=== PATIENT | female | born 1950 | race Caucasian/White ===

== ENCOUNTER 2016-09-12 02:04 | Inpatient (IN) | payer OTHER ==
[~2016-09-12] VITALS: Ht 175.3 cm; Wt 64.5 kg
[~2016-09-12 02:04] MED LIST: BENA1POW PO; LITH300C3 OR; LORA1TAB12 OR; LOVA40TA72 OR; PROMCRY PO; VENL150C OR
[2016-09-12 06:04] LABS: Basophils # (auto) 0.2 uL; Basophils % (auto) 0.8 % (0.0-2.0); Eosinophils # (auto) 0 uL; Hematocrit 43.4 % (36.0-46.0); Hemoglobin 14.2 g/dL (12.2-16.2); Lymphocytes # (auto) 1.2 uL; Lymphocytes % (auto) 6.5 % (10.0-50.0); Mean Corpuscular Hemoglobin 30.1 pg (28.0-32.0); Mean Corpuscular Hgb Conc. 32.7 g/dL (32.0-36.0); Mean Platelet Volume 8.7 fL (7.4-10.4); Monocytes # (auto) 0.9 uL; Monocytes % (auto) 4.9 % (0.0-12.0); Neutrophils # (auto) 16.2 uL; Neutrophils % (auto) 87.8 % (37.0-80.0); Platelet Count (auto) 306 10^3/uL (140-450); Red Cell Distribution Width 14.8 % (11.6-16.0); White Blood Cell 18.4 10^3/uL (4.4-10.8)
[2016-09-12 06:23] LABS: BUN/Creatinine Ratio 12.6; Calcium 10.7 mg/dL (8.5-10.1)
[2016-09-12 06:26] LABS: Bilirubin, Total 0.9 mg/dL (0.2-1.0); Total Protein 7.9 g/dL (6.4-8.2)
[2016-09-12 06:29] LABS: Potassium 2.8 mmol/L (3.5-5.1)
[2016-09-12] MEDS ORDERED: SOD CHL 0.9%/ KCL 20MEQ 1,000 ML IV ONE (07:00)
[2016-09-12] MEDS ORDERED: LORazepam 0.5 MG TAB PO ONE (07:00)
[2016-09-12] MEDS ORDERED: ASPirin 325 MG TAB PO ONE (10:00)
[2016-09-12] MEDS ORDERED: ENOXAPARIN SOD 100 MG/1 ML SYRINGE SC ONE (10:15)
[2016-09-12] MEDS ORDERED: NITROGLYCERIN 0.4 MG SL TAB SL PRN (12:00)
[2016-09-12] MEDS ORDERED: SODIUM CHLORIDE 0.9% 1,000 ML IV ONE (12:00)
[2016-09-12] MEDS ORDERED: MORPHINE SULF INJ 2 MG/ML SYRINGE 1ML IV PRN (12:00)
[2016-09-12] MEDS ORDERED: HYDROcodone-ACET 5/325MG TAB PO PRN (12:30)
[2016-09-12] MEDS ORDERED: ALPRAZolam 0.5 MG TAB PO PRN (12:30)
[2016-09-12] MEDS ORDERED: cefTRIAXone 1GM/50ML D5W 50 ML IV ONE (12:45)
[2016-09-12 13:00] VITALS: BP 149/66
[2016-09-12] MEDS ORDERED: LORazepam 0.5 MG TAB PO PRN (13:15)
[2016-09-12 17:00] VITALS: BP 123/63
[2016-09-12] MEDS: ENOXAPARIN SOD 80 MG/0.8ML SYRINGE SC SCH (21:36)
[2016-09-12] MEDS ORDERED: ATORVASTATIN 20 MG TAB PO SCH (22:00)
[2016-09-12 22:18] VITALS: BP 149/84
[2016-09-13] MEDS ORDERED: POTASSIUM CHL 20 Meq TABLET PO ONE (00:15)
[2016-09-13 05:20] VITALS: BP 136/71
[2016-09-13] MEDS ORDERED: VENLAFAXINE HCL 37.5mg XR cap PO SCH (07:00)
[2016-09-13 07:55] LABS: Basophils # (auto) 0.1 uL; Basophils % (auto) 0.5 % (0.0-2.0); Eosinophils # (auto) 0 uL; Eosinophils % (auto) 0.2 % (0.0-7.0); Hematocrit 39.6 % (36.0-46.0); Hemoglobin 12.8 g/dL (12.2-16.2); Lymphocytes # (auto) 1.4 uL; Lymphocytes % (auto) 12.1 % (10.0-50.0); Mean Corpuscular Hemoglobin 30.2 pg (28.0-32.0); Mean Corpuscular Hgb Conc. 32.4 g/dL (32.0-36.0); Mean Corpuscular Volume 93.2 fL (80.0-100.0); Mean Platelet Volume 9.1 fL (7.4-10.4); Monocytes # (auto) 0.6 uL; Neutrophils # (auto) 9.4 uL; Neutrophils % (auto) 82.2 % (37.0-80.0); Platelet Count (auto) 265 10^3/uL (140-450); Red Cell Distribution Width 15.1 % (11.6-16.0); White Blood Cell 11.4 10^3/uL (4.4-10.8)
[2016-09-13] MEDS ORDERED: LAMO100T44 PO (08:16)
[2016-09-13 08:20] LABS: Albumin 3.6 g/dL (3.4-5.0); BUN/Creatinine Ratio 16.3; Bilirubin, Total 0.6 mg/dL (0.2-1.0); Calcium 10.3 mg/dL (8.5-10.1); Potassium 3.9 mmol/L (3.5-5.1); Total Protein 6.4 g/dL (6.4-8.2)
[2016-09-13 08:57] VITALS: BP 155/78
[2016-09-13] MEDS ORDERED: cefTRIAXone 1GM/50ML D5W 50 ML IV SCH (09:00)
[2016-09-13] MEDS: ENOXAPARIN SOD 80 MG/0.8ML SYRINGE SC SCH (10:00)
[2016-09-13] MEDS ORDERED: BENAZEPRIL HCL 10 MG TAB PO SCH (10:00)
[2016-09-13 11:06] VITALS: BP 131/66
== END 2016-09-13 14:10 | disposition home or self-care (01) | DRG 872 ==
LOC: ER 02:04 → TELE 02:05 → TELE-EAST 12:35
PROVIDERS: ADMIT Internal Medicine; ATTEND Internal Medicine
DX: A41.9 Sepsis, unspecified organism (principal); N18.4 Chronic kidney disease, stage 4 (severe); F31.9 Bipolar disorder, unspecified; F41.9 Anxiety disorder, unspecified; F43.10 Post-traumatic stress disorder, unspecified; E86.0 Dehydration; E87.6 Hypokalemia; E87.8 Other disorders of electrolyte and fluid balance, not elsewhere classified; I12.9 Hypertensive chronic kidney disease with stage 1 through stage 4 chronic kidney disease, or unspecified chronic kidney disease; E78.5 Hyperlipidemia, unspecified; Z23 Encounter for immunization; K57.30 Diverticulosis of large intestine without perforation or abscess without bleeding
CPT/HCPCS: 36415; 71010; 71101; 74176; 80053; 83690; 84478; 84484; 85025; 85049; 93005; 93306; 96360; 96361; 96372; J0696

== ENCOUNTER 2016-11-09 22:21 | Emergency (ER) | payer OTHER ==
[~2016-11-09] VITALS: Ht 175.3 cm; Wt 67.1 kg
[~2016-11-09 22:21] MED LIST changes: +LAMO100T44 PO; -LITH300C3 OR; -PROMCRY PO
[2016-11-09 23:16] LABS: Basophils # (auto) 0 uL; Basophils % (auto) 0.3 % (0.0-2.0); Eosinophils # (auto) 0 uL; Hematocrit 41.7 % (36.0-46.0); Hemoglobin 13.8 g/dL (12.2-16.2); Lymphocytes # (auto) 1.2 uL; Mean Corpuscular Hemoglobin 30.3 pg (28.0-32.0); Mean Corpuscular Volume 91.8 fL (80.0-100.0); Mean Platelet Volume 8.8 fL (7.4-10.4); Monocytes # (auto) 0.8 uL; Monocytes % (auto) 5.7 % (0.0-12.0); Neutrophils # (auto) 12.6 uL; Platelet Count (auto) 270 10^3/uL (140-450); Red Cell Distribution Width 14.8 % (11.6-16.0); White Blood Cell 14.7 10^3/uL (4.4-10.8)
[2016-11-09 23:34] LABS: INR 1.04 (0.9-1.15); Partial Thromboplastin Time 25.4 sec (22.64-33.71); Prothrombin Time 10.7 sec (9.37-12.3)
[2016-11-09 23:42] LABS: BUN/Creatinine Ratio 15.5; Calcium 10.7 mg/dL (8.5-10.1)
[2016-11-09 23:47] LABS: Bilirubin, Total 0.8 mg/dL (0.2-1.0); Total Protein 7.6 g/dL (6.4-8.2)
[2016-11-10 00:18] LABS: Potassium 2.8 mmol/L (3.5-5.1)
[2016-11-10 00:30] LABS: Urine Bilirubin Negative (Negative); Urine Blood Negative /uL (Negative); Urine Color Yellow (Yellow); Urine Glucose Normal (Normal); Urine Ketone Negative (Negative); Urine Nitrite Negative (Negative); Urine RBC 1 /hpf (0 - 4); Urine Squamous Epithelial Cell FEW /hpf (<5); Urine Urobilinogen Normal (Negative)
[2016-11-10] MEDS ORDERED: ONDANSETRON HCL 4 MG/2 ML VIAL IV ONE (04:15)
[2016-11-10] MEDS ORDERED: SODIUM CHLORIDE 0.9% 1,000 ML IV ONE ×3 (04:15→07:30)
[2016-11-10] MEDS ORDERED: POTASSIUM CHLORIDE 40 MEQ, LIDOCAINE 1% (LOCAL ANESTH.) 4 ML in SODIUM CHL 0.9% 250 ML IV ONE (04:30)
[2016-11-10] MEDS ORDERED: POTASSIUM CHL 20MEQ/100ML 100 ML IV ONE (04:45)
[2016-11-10] MEDS: POTASSIUM CHL 20MEQ/100ML 100 ML IV SCH ×2 (04:45→07:11)
[2016-11-10] MEDS ORDERED: POTASSIUM CHL 20MEQ/100ML 200 ML IV ONE (05:00)
[2016-11-10] MEDS ORDERED: SODIUM CHLORIDE 0.9% 1,000 ML IV SCH (06:05)
[2016-11-10] MEDS ORDERED: LORazepam 0.5 MG TAB PO PRN (06:15)
[2016-11-10] MEDS ORDERED: MORPHINE SULF INJ 2 MG/ML SYRINGE 1ML IV PRN ×4 (06:15→08:45)
[2016-11-10] MEDS ORDERED: HYDROcodone-ACET 5/325MG TAB PO PRN (06:15)
[2016-11-10] MEDS ORDERED: ACETAMINOPHEN 325 MG TAB PO PRN (06:15)
[2016-11-10] MEDS ORDERED: NITROGLYCERIN 0.4 MG SL TAB SL PRN ×2 (06:15→07:30)
[2016-11-10] MEDS ORDERED: ONDANSETRON HCL 4 MG/2 ML VIAL IV PRN ×3 (06:15→08:45)
[2016-11-10] MEDS ORDERED: LEVOFLOXACIN 500MG 100 ML IV ONE (07:30)
[2016-11-10] MEDS ORDERED: [UNRECOGNIZED DRUG - CODE] PO (07:33)
[2016-11-10] MEDS ORDERED: LOR05T PO (07:33)
[2016-11-10] MEDS ORDERED: LAMO25TA66 PO (07:33)
[2016-11-10 07:52] LABS: Potassium 3.6 mmol/L (3.5-5.1)
[2016-11-10 08:00] LABS: BUN/Creatinine Ratio 17.3; Calcium 9.6 mg/dL (8.5-10.1)
[2016-11-10] MEDS ORDERED: hydrALAZINE HCL 20 MG/ML VL IV ONE ×2 (08:45)
[2016-11-10] MEDS ORDERED: METOCLOPRAMIDE HCL 5MG/ml INJ 2ml VIAL IV ONE (09:45)
[2016-11-10] MEDS ORDERED: ENOXAPARIN SOD 30 MG/0.3 ML SYRINGE SC SCH (10:00)
[2016-11-10] MEDS ORDERED: PANTOPRAZOLE SODIUM 40 MG/10 ML VIAL IV SCH (10:00)
[2016-11-10] MEDS ORDERED: lamoTRIgine 25 MG TAB PO SCH (10:00)
[2016-11-10] MEDS ORDERED: BENAZEPRIL HCL 10 MG TAB PO SCH (10:00)
[2016-11-10 16:50] VITALS: BP 124/59
[2016-11-10] MEDS ORDERED: PRAVASTATIN SODIUM 20 MG TAB PO SCH (22:00)
[2016-11-10] MEDS ORDERED: PATIENTS OWN MEDICATION (lovastatin 40 MG) PO SCH ×2 (22:00)
== END 2016-11-10 09:50 | disposition home or self-care (01) ==
LOC: ER 22:34 → UNDOADMIN 22:35 → TELE 22:35
DX: N17.9 Acute kidney failure, unspecified (principal); R79.89 Other specified abnormal findings of blood chemistry; E87.6 Hypokalemia; I10 Essential (primary) hypertension
CPT/HCPCS: 36415; 70450; 74176; 80048; 80053; 81001; 82150; 83690; 84484; 85025; 85610; 85730; 96361; 96365; 96375; 96376; 99285; G0434; J0360; J1956; J2405; J2765; J3480; J7030; 93005; J2001

== ENCOUNTER 2017-01-28 18:38 | Emergency (ER) | payer OTHER ==
[~2017-01-28] VITALS: Ht 188 cm; Wt 68.0 kg
[~2017-01-28 18:38] MED LIST changes: +LAMO25TA66 PO; +LOR05T PO; +[UNRECOGNIZED DRUG - CODE] PO
[2017-01-28 20:36] LABS: Basophils # (auto) 0.1 uL; Basophils % (auto) 0.5 % (0.0-2.0); Eosinophils # (auto) 0 uL; Hematocrit 44.5 % (36.0-46.0); Hemoglobin 14.6 g/dL (12.2-16.2); Lymphocytes # (auto) 0.7 uL; Lymphocytes % (auto) 5.2 % (10.0-50.0); Mean Corpuscular Hgb Conc. 32.9 g/dL (32.0-36.0); Mean Corpuscular Volume 91.3 fL (80.0-100.0); Mean Platelet Volume 9.2 fL (7.4-10.4); Monocytes # (auto) 0.3 uL; Monocytes % (auto) 2.1 % (0.0-12.0); Neutrophils # (auto) 12.4 uL; Neutrophils % (auto) 92.2 % (37.0-80.0); Platelet Count (auto) 340 10^3/uL (140-450); Red Cell Distribution Width 15.1 % (11.6-16.0); White Blood Cell 13.5 10^3/uL (4.4-10.8)
[2017-01-28 20:57] LABS: Bilirubin, Total 0.6 mg/dL (0.2-1.0); Calcium 11.1 mg/dL (8.5-10.1); Magnesium 2.6 mg/dL (1.6-2.6); Potassium 4.4 mmol/L (3.5-5.1); Total Protein 7.9 g/dL (6.4-8.2)
[2017-01-29] MEDS ORDERED: LORazepam 2MG/ML-1ML VIAL ONE (02:06)
[2017-01-29] MEDS ORDERED: diphenhdrAMINE HCL 50 MG/1 ML VL ONE (02:12)
[2017-01-29] MEDS ORDERED: SODIUM CHLORIDE 0.9% 1,000 ML IV ONE (02:15)
[2017-01-29] MEDS ORDERED: LORazepam 2MG/ML-1ML VIAL IV ONE ×3 (02:15→02:30)
[2017-01-29] MEDS ORDERED: diphenhdrAMINE HCL 50 MG/1 ML VL IV ONE (02:30)
[2017-01-29 02:51] LABS: INR 1.01 (0.9-1.15)
[2017-01-29 02:59] LABS: Acetaminophen < 2.0 ug/mL (10-30); Salicylate 3.3 mg/dL (2.8-20.0)
[2017-01-29 09:05] LABS: Urine Bilirubin Negative (Negative); Urine Blood 1+ /uL (Negative); Urine Color Yellow (Yellow); Urine Glucose Normal (Normal); Urine Ketone Negative (Negative); Urine Nitrite Negative (Negative); Urine RBC <1 /hpf (0 - 4); Urine Squamous Epithelial Cell FEW /hpf (<5); Urine Urobilinogen Normal (Negative)
[2017-01-29 10:00] VITALS: BP 143/74
[2017-01-29] MEDS ORDERED: ASPirin 325 MG TAB PO ONE (10:45)
== END 2017-01-29 11:11 | disposition home or self-care (01) ==
LOC: EDBD 18:38 → ER 18:43
DX: G92 Toxic encephalopathy (principal); R56.9 Unspecified convulsions; R79.89 Other specified abnormal findings of blood chemistry; I10 Essential (primary) hypertension; Z79.899 Other long term (current) drug therapy; Z91.011 Allergy to milk products
CPT/HCPCS: 36415; 70450; 71010; 74176; 80053; 80307; 80329; 81001; 83735; 84484; 85025; 85610; 93005; 94761; 96361; 96374; 96375; 99285; J1200; J2060

== ENCOUNTER 2017-06-19 13:11 | Inpatient (IN) | payer OTHER ==
[~2017-06-19] VITALS: Ht 167.6 cm; Wt 64.2 kg
[~2017-06-19 13:11] MED LIST changes: -LOR05T PO; +LORA-654 PO
[2017-06-19] MEDS ORDERED: LORazepam 2MG/ML-1ML VIAL ONE (13:23)
[2017-06-19] MEDS ORDERED: LORazepam 2MG/ML-1ML VIAL IM ONE ×2 (13:30→14:45)
[2017-06-19 14:04] LABS: Basophils # (auto) 0.1 uL; Basophils % (auto) 0.3 % (0.0-2.0); Eosinophils # (auto) 0 uL; Hemoglobin 14.9 g/dL (12.2-16.2); Lymphocytes # (auto) 1.4 uL; Lymphocytes % (auto) 6.6 % (10.0-50.0); Mean Corpuscular Hemoglobin 30.6 pg (28.0-32.0); Mean Corpuscular Hgb Conc. 33.2 g/dL (32.0-36.0); Mean Corpuscular Volume 92.2 fL (80.0-100.0); Mean Platelet Volume 8.2 fL (6.9-10.8); Monocytes # (auto) 1.8 uL; Monocytes % (auto) 8.6 % (0.0-12.0); Neutrophils % (auto) 84.5 % (37.0-80.0); Nucleated Red Blood Cells % 0.1 %; Platelet Count (auto) 299 10^3/uL (140-450); Red Cell Distribution Width 14.3 % (11.8-14.3); White Blood Cell 21.4 10^3/uL (4.4-10.8)
[2017-06-19] MEDS ORDERED: SODIUM CHLORIDE 0.9% 1,000 ML IVB ONE (14:22)
[2017-06-19 14:25] LABS: Albumin 5.1 g/dL (3.4-5.0); Alkaline Phosphatase 113 U/L (45-117); Anion Gap 19 (5-15); Aspartate Aminotransferase 84 U/L (15-37); BUN/Creatinine Ratio 16.2; Bilirubin, Total 1.8 mg/dL (0.2-1.0); Blood Urea Nitrogen 39 mg/dL (7-18); Calcium 11.8 mg/dL (8.5-10.1); Carbon Dioxide 23 mmol/L (21-32); Chloride 93 mmol/L (98-107); GFR African American 26 mL/min; GFR Non-African American 21 mL/min; Glucose 109 mg/dL (74-106); Potassium 3.1 mmol/L (3.5-5.1); Sodium 135 mmol/L (136-145); Total Protein 9.3 g/dL (6.4-8.2)
[2017-06-19 14:45] LABS: Lactic Acid w/Reflex 5.8 mmol/L (0.4-2.0)
[2017-06-19] MEDS ORDERED: diphenhdrAMINE HCL 50 MG/1 ML VL IM ONE (14:45)
[2017-06-19] MEDS ORDERED: HALOPERIDOL LACTATE 5 MG/ML INJ VIAL IM ONE (14:45)
[2017-06-19 14:46] LABS: REFLEX LACTIC ACID YES OR NO YES
[2017-06-19 14:47] LABS: Magnesium 2.9 mg/dL (1.6-2.6)
[2017-06-19] MEDS ORDERED: SODIUM CHLORIDE 0.9% 1,000 ML IV ONE ×2 (15:30)
[2017-06-19] MEDS ORDERED: cefTRIAXone 1GM/50ML D5W 50 ML IV ONE (15:30)
[2017-06-19 16:03] LABS: INR 0.93 (0.9-1.15); Partial Thromboplastin Time 24.5 sec (22.64-33.71); Prothrombin Time 10.1 sec (9.37-12.3)
[2017-06-19 17:22] LABS: Urine Bilirubin Negative (Negative); Urine Blood 2+ /uL (Negative); Urine Color Yellow (Yellow); Urine Glucose Normal (Normal); Urine Ketone Negative (Negative); Urine Nitrite Negative (Negative); Urine RBC 1 /hpf (0 - 4); Urine Squamous Epithelial Cell FEW /hpf (<5); Urine Urobilinogen Normal (Negative); Urine pH 6.5 (5.0-8.0)
[2017-06-19] MEDS: POTASSIUM CHL 10MEQ/100ML 100 ML IV SCH ×2 (17:48→20:00)
[2017-06-19] MEDS ORDERED: POTASSIUM CHL 10MEQ/100ML 100 ML IV ONE (19:53)
[2017-06-19] MEDS ORDERED: MORPHINE SULFATE 10 MG/ML INJ 1ML SDV IV PRN (21:30)
[2017-06-19] MEDS ORDERED: ACETAMINOPHEN 325 MG TAB PO PRN (21:30)
[2017-06-19] MEDS ORDERED: VANCOMYCIN PER PHARMACY 0 MG IV SCH (21:30)
[2017-06-19] MEDS ORDERED: ONDANSETRON HCL 4 MG/2 ML VIAL IV PRN (21:30)
[2017-06-19] MEDS ORDERED: ENOXAPARIN SOD 40 MG/0.4 ML SYRINGE SC ONE (21:30)
[2017-06-19] MEDS ORDERED: NITROGLYCERIN 0.4 MG SL TAB SL PRN (21:30)
[2017-06-19] MEDS: SODIUM CHLORIDE 0.9% 1,000 ML IV SCH (21:30)
[2017-06-19] MEDS ORDERED: VANCOMYCIN 1GM/250ML D5W 250 ML IV ONE (21:45)
[2017-06-20] MEDS ORDERED: ENOXAPARIN SOD 100 MG/1 ML SYRINGE SC ONE (01:00)
[2017-06-20] MEDS: HYDROcodone-ACET 5/325MG TAB PO PRN ×2 (01:58→20:29)
[2017-06-20 04:46] LABS: Basophils # (auto) 0.1 uL; Basophils % (auto) 0.4 % (0.0-2.0); Eosinophils # (auto) 0 uL; Eosinophils % (auto) 0.1 % (0.0-7.0); Hematocrit 39.6 % (36.0-46.0); Lymphocytes # (auto) 1.7 uL; Lymphocytes % (auto) 13.1 % (10.0-50.0); Mean Corpuscular Hemoglobin 30.5 pg (28.0-32.0); Mean Corpuscular Hgb Conc. 32.7 g/dL (32.0-36.0); Mean Corpuscular Volume 93.1 fL (80.0-100.0); Mean Platelet Volume 8.5 fL (6.9-10.8); Monocytes # (auto) 1.4 uL; Monocytes % (auto) 10.5 % (0.0-12.0); Neutrophils % (auto) 75.9 % (37.0-80.0); Platelet Count (auto) 234 10^3/uL (140-450); Red Cell Distribution Width 13.9 % (11.8-14.3); White Blood Cell 13.2 10^3/uL (4.4-10.8)
[2017-06-20 05:14] LABS: Albumin 3.6 g/dL (3.4-5.0); BUN/Creatinine Ratio 19.8; Bilirubin, Total 1.3 mg/dL (0.2-1.0); Calcium 9.8 mg/dL (8.5-10.1); Potassium 3.3 mmol/L (3.5-5.1); Total Protein 6.4 g/dL (6.4-8.2)
[2017-06-20] MEDS: PIPERACILLIN-TAZOB 2.25GM 50 ML IV SCH ×4 (06:14→17:52)
[2017-06-20 10:00] VITALS: BP 118/59
[2017-06-20] MEDS ORDERED: ENOXAPARIN SOD 40 MG/0.4 ML SYRINGE SC SCH (10:00)
[2017-06-20] MEDS: BENAZEPRIL HCL 10 MG TAB PO SCH (10:07)
[2017-06-20] MEDS: SODIUM CHLORIDE 0.9% 1,000 ML IV SCH (10:08)
[2017-06-20] MEDS: ASPirin 81 mg TAB PO SCH (10:08)
[2017-06-20] MEDS: PANTOPRAZOLE 40 MG TAB PO SCH (10:08)
[2017-06-20 11:45] VITALS: BP 116/69
[2017-06-20 15:55] VITALS: BP 134/73
[2017-06-20 20:00] VITALS: BP 165/90
[2017-06-20] MEDS: LORazepam 0.5 MG TAB PO PRN (20:29)
[2017-06-20] MEDS: VANCOMYCIN 1GM/250ML D5W 250 ML IV SCH (22:24)
[2017-06-21] VITALS: BP 146/53
[2017-06-21] MEDS: SODIUM CHLORIDE 0.9% 1,000 ML IV SCH (00:05)
[2017-06-21] MEDS: PIPERACILLIN-TAZOB 2.25GM 50 ML IV SCH ×4 (00:57→18:02)
[2017-06-21 04:00] VITALS: BP 146/63
[2017-06-21 06:09] LABS: Albumin 3.5 g/dL (3.4-5.0); BUN/Creatinine Ratio 18.3; Bilirubin, Total 0.9 mg/dL (0.2-1.0); Calcium 9.8 mg/dL (8.5-10.1); Potassium 3.4 mmol/L (3.5-5.1); Total Protein 6.5 g/dL (6.4-8.2)
[2017-06-21] MEDS: LORazepam 0.5 MG TAB PO PRN ×2 (08:50→21:06)
[2017-06-21] MEDS: PANTOPRAZOLE 40 MG TAB PO SCH (08:50)
[2017-06-21] MEDS: BENAZEPRIL HCL 10 MG TAB PO SCH (08:51)
[2017-06-21] MEDS: ASPirin 81 mg TAB PO SCH (08:53)
[2017-06-21] MEDS ORDERED: DESMOPRESSIN ACET 4 MCG/1 ML AMPULE IV ONE (10:45)
[2017-06-21 11:55] VITALS: BP 161/95
[2017-06-21] MEDS: SOD CHL 0.45% WITH 20MEQ KCL 1,000 ML IV SCH (12:00)
[2017-06-21 16:00] VITALS: BP 145/74
[2017-06-21 20:00] VITALS: BP 146/81
[2017-06-21] MEDS: HYDROcodone-ACET 5/325MG TAB PO PRN (21:07)
[2017-06-21 22:00] VITALS: BP 128/77
[2017-06-21] MEDS: VANCOMYCIN 1GM/250ML D5W 250 ML IV SCH (22:35)
[2017-06-22] MEDS: SOD CHL 0.45% WITH 20MEQ KCL 1,000 ML IV SCH ×2 (00:35→13:55)
[2017-06-22 05:22] VITALS: BP 143/79
[2017-06-22] MEDS: PIPERACILLIN-TAZOB 2.25GM 50 ML IV SCH ×3 (05:30→12:00)
[2017-06-22 06:46] LABS: Basophils # (auto) 0.1 uL; Basophils % (auto) 0.6 % (0.0-2.0); Eosinophils # (auto) 0.2 uL; Eosinophils % (auto) 1.9 % (0.0-7.0); Hematocrit 38.6 % (36.0-46.0); Hemoglobin 12.9 g/dL (12.2-16.2); Lymphocytes # (auto) 1.5 uL; Lymphocytes % (auto) 14.7 % (10.0-50.0); Mean Corpuscular Hgb Conc. 33.3 g/dL (32.0-36.0); Mean Corpuscular Volume 93.1 fL (80.0-100.0); Mean Platelet Volume 8.5 fL (6.9-10.8); Monocytes # (auto) 0.8 uL; Monocytes % (auto) 7.4 % (0.0-12.0); Neutrophils # (auto) 7.9 uL; Neutrophils % (auto) 75.4 % (37.0-80.0); Platelet Count (auto) 219 10^3/uL (140-450); Red Cell Distribution Width 13.8 % (11.8-14.3); White Blood Cell 10.5 10^3/uL (4.4-10.8)
[2017-06-22 07:09] LABS: Albumin 3.4 g/dL (3.4-5.0); BUN/Creatinine Ratio 14.5; Bilirubin, Total 1.1 mg/dL (0.2-1.0); Calcium 9.8 mg/dL (8.5-10.1); Potassium 3.6 mmol/L (3.5-5.1); Total Protein 6.4 g/dL (6.4-8.2)
[2017-06-22 09:00] VITALS: BP 156/92
[2017-06-22] MEDS: BENAZEPRIL HCL 10 MG TAB PO SCH (10:28)
[2017-06-22] MEDS: PANTOPRAZOLE 40 MG TAB PO SCH (10:28)
[2017-06-22] MEDS: ASPirin 81 mg TAB PO SCH (10:28)
[2017-06-22] MEDS: HYDROcodone-ACET 5/325MG TAB PO PRN (10:29)
[2017-06-22] MEDS: LORazepam 0.5 MG TAB PO PRN (11:09)
[2017-06-22] MEDS ORDERED: TRIATAB3 PO (11:28)
[2017-06-22 11:49] VITALS: BP 156/92
[2017-06-22 13:00] VITALS: BP 152/105
== END 2017-06-22 14:00 | disposition home or self-care (01) | DRG 682 ==
LOC: ER 13:11 → EDUNIT# 13:11 → EDBD 13:11 → TELE 13:12 → DOU IN ICU 06-20 08:50 → TELE-WESTW 06-21 21:51
PROVIDERS: ADMIT Nurse Practitioner; ATTEND Internal Medicine
DX: N17.9 Acute kidney failure, unspecified (principal); G93.41 Metabolic encephalopathy; E87.0 Hyperosmolality and hypernatremia; N18.4 Chronic kidney disease, stage 4 (severe); N25.1 Nephrogenic diabetes insipidus; I12.9 Hypertensive chronic kidney disease with stage 1 through stage 4 chronic kidney disease, or unspecified chronic kidney disease; E78.5 Hyperlipidemia, unspecified; E87.6 Hypokalemia; F12.90 Cannabis use, unspecified, uncomplicated; F31.9 Bipolar disorder, unspecified; T43.595A Adverse effect of other antipsychotics and neuroleptics, initial encounter; F41.9 Anxiety disorder, unspecified; Z91.011 Allergy to milk products; Z79.899 Other long term (current) drug therapy; Y92.89 Other specified places as the place of occurrence of the external cause
CPT/HCPCS: 36415; 51702; 70450; 71010; 80053; 80178; 80202; 80307; 80320; 81001; 82550; 83605; 83735; 83930; 83935; 84484; 85025; 85610; 85730; 87040; 87081; 93005; 94761; 96361; 96365; 96366; 96367; 96372; A4565; J0696; J2543

== ENCOUNTER 2017-08-12 14:56 | Emergency (ER) | payer OTHER ==
[~2017-08-12] VITALS: Ht 182.9 cm; Wt 54.4 kg
[~2017-08-12 14:56] MED LIST changes: -LAMO100T44 PO; -LORA1TAB12 OR; -LOVA40TA72 OR; +ROSU5TAB5 PO; +[UNRECOGNIZED DRUG - CODE] PO; -[UNRECOGNIZED DRUG - CODE] PO
[2017-08-12] MEDS ORDERED: SODIUM CHLORIDE 0.9% 1,000 ML IV ONE ×2 (15:19)
[2017-08-12] MEDS ORDERED: MORPHINE SULFATE 4 MG/ML SYRG IV ONE (15:30)
[2017-08-12] MEDS ORDERED: ONDANSETRON HCL 4 MG/2 ML VIAL IV ONE ×2 (15:30→21:00)
[2017-08-12 16:01] LABS: Basophils # (auto) 0.1 uL; Basophils % (auto) 1.1 % (0.0-2.0); Eosinophils # (auto) 0 uL; Hematocrit 39.1 % (36.0-46.0); Hemoglobin 12.9 g/dL (12.2-16.2); Lymphocytes # (auto) 1.7 uL; Mean Corpuscular Hemoglobin 30.1 pg (28.0-32.0); Mean Corpuscular Hgb Conc. 33.1 g/dL (32.0-36.0); Mean Platelet Volume 7.7 fL (6.9-10.8); Monocytes % (auto) 7.2 % (0.0-12.0); Neutrophils # (auto) 11.1 uL; Neutrophils % (auto) 79.7 % (37.0-80.0); Platelet Count (auto) 346 10^3/uL (140-450); Red Cell Distribution Width 14.2 % (11.8-14.3); White Blood Cell 13.9 10^3/uL (4.4-10.8)
[2017-08-12 16:02] LABS: Albumin 3.7 g/dL (3.4-5.0); BUN/Creatinine Ratio 14.7; Bilirubin, Total 0.8 mg/dL (0.2-1.0); Calcium 10.3 mg/dL (8.5-10.1); Potassium 3.2 mmol/L (3.5-5.1); Total Protein 7.3 g/dL (6.4-8.2)
[2017-08-12] MEDS ORDERED: LORazepam 2MG/ML-1ML VIAL IV ONE (16:30)
[2017-08-12] MEDS ORDERED: PRO10T PO (18:30)
[2017-08-12 18:59] LABS: Urine Bilirubin Negative (Negative); Urine Blood TRACE /uL (Negative); Urine Color Yellow (Yellow); Urine Glucose Normal (Normal); Urine Ketone Negative (Negative); Urine Nitrite Negative (Negative); Urine RBC 1 /hpf (0 - 4); Urine Squamous Epithelial Cell FEW /hpf (<5); Urine Urobilinogen Normal (Negative)
[2017-08-12] MEDS ORDERED: ONDANSETRON HCL 4 MG/2 ML VIAL ONE (20:36)
[2017-08-13 00:12] VITALS: BP 129/80
== END 2017-08-13 00:23 | disposition short-term general hospital (02) ==
LOC: ER 14:56 → EDBD 14:56 → ER 08-13 00:23
DX: R79.89 Other specified abnormal findings of blood chemistry (principal); R10.13 Epigastric pain; R11.2 Nausea with vomiting, unspecified; I12.9 Hypertensive chronic kidney disease with stage 1 through stage 4 chronic kidney disease, or unspecified chronic kidney disease; N18.9 Chronic kidney disease, unspecified; F17.210 Nicotine dependence, cigarettes, uncomplicated; E78.5 Hyperlipidemia, unspecified; Z79.899 Other long term (current) drug therapy; Z91.011 Allergy to milk products
CPT/HCPCS: 36415; 71010; 74176; 80053; 81001; 82150; 83690; 84484; 85025; 93005; 96361; 96374; 96375; 96376; 99285; J2060; J2270; J2405; J7040

== ENCOUNTER 2017-08-24 19:52 | Emergency (ER) | payer OTHER ==
[~2017-08-24] VITALS: Ht 177.8 cm; Wt 72.6 kg
[~2017-08-24 19:52] MED LIST changes: +PRO10T PO
[2017-08-24] MEDS ORDERED: PROMETHAZINE HCL 25 MG/ML 1ML ONE (20:36)
[2017-08-24] MEDS ORDERED: HYDROmorphone HCL 2 MG/ML VL ONE (20:36)
[2017-08-24] MEDS ORDERED: LORazepam 2MG/ML-1ML VIAL ONE (20:36)
[2017-08-24] MEDS ORDERED: PROMETHAZINE HCL 25 MG/ML 1ML IV ONE (20:45)
[2017-08-24] MEDS ORDERED: LORazepam 2MG/ML-1ML VIAL IV ONE (20:45)
[2017-08-24] MEDS ORDERED: HYDROmorphone HCL 2 MG/ML VL IV ONE (20:45)
[2017-08-24 20:53] LABS: Basophils # (auto) 0 uL; Eosinophils # (auto) 0 uL; Hemoglobin 12.7 g/dL (12.2-16.2); Lymphocytes # (auto) 0.7 uL; Monocytes # (auto) 1.2 uL
[2017-08-24 20:56] LABS: Basophils % (auto) 0.1 % (0.0-2.0); Hematocrit 37.7 % (36.0-46.0); Lymphocytes % (auto) 3.2 % (10.0-50.0); Mean Corpuscular Hemoglobin 30.9 pg (28.0-32.0); Mean Corpuscular Hgb Conc. 33.7 g/dL (32.0-36.0); Mean Corpuscular Volume 91.7 fL (80.0-100.0); Monocytes % (auto) 5.3 % (0.0-12.0); Neutrophils # (auto) 20.5 uL; Neutrophils % (auto) 91.4 % (37.0-80.0); Platelet Count (auto) 482 10^3/uL (140-450); Red Blood Cells 4.11 10^6/uL (4.0-5.20); Red Cell Distribution Width 14.8 % (11.8-14.3); White Blood Cell 22.4 10^3/uL (4.4-10.8)
[2017-08-24 21:11] LABS: INR 0.95 (0.9-1.15); Partial Thromboplastin Time 23.9 sec (22.64-33.71); Prothrombin Time 10.3 sec (9.37-12.3)
[2017-08-24 21:49] LABS: Alanine Aminotransferase 30 U/L (13-56); Albumin 3.9 g/dL (3.4-5.0); Alkaline Phosphatase 67 U/L (45-117); Anion Gap 12 (5-15); Aspartate Aminotransferase 26 U/L (15-37); BUN/Creatinine Ratio 16.7; Bilirubin, Total 0.5 mg/dL (0.2-1.0); Blood Alcohol < 3.0 mg/dL (0-5); Blood Urea Nitrogen 34 mg/dL (7-18); Calcium 10.6 mg/dL (8.5-10.1); Carbon Dioxide 24 mmol/L (21-32); Chloride 102 mmol/L (98-107); GFR African American 32 mL/min; GFR Non-African American 26 mL/min; Glucose 117 mg/dL (74-106); Magnesium 2.7 mg/dL (1.6-2.6); Potassium 3.7 mmol/L (3.5-5.1); Sodium 138 mmol/L (136-145); Total Protein 7.6 g/dL (6.4-8.2)
[2017-08-24] MEDS ORDERED: diphenhdrAMINE HCL 50 MG/1 ML VL ONE (22:19)
[2017-08-24] MEDS ORDERED: ACETAMINOPHEN 120 MG RECT SUPP PR ONE (22:32)
[2017-08-25] MEDS ORDERED: SODIUM CHLORIDE 0.9% 2,200 ML IV ONE
[2017-08-25] MEDS ORDERED: cefTRIAXone 1GM/10ml IVPUSH 10 ML IV ONE
[2017-08-25] MEDS ORDERED: SODIUM CHLORIDE 0.9% 1,000 ML IV ONE
[2017-08-25] MEDS ORDERED: diphenhdrAMINE HCL 50 MG/1 ML VL IV ONE ×2 (00:15→01:30)
[2017-08-25] MEDS ORDERED: ACETAMINOPHEN 120 MG RECT SUPP PR ONE (00:15)
[2017-08-25] MEDS ORDERED: HYDROmorphone HCL 2 MG/ML VL IV ONE (00:30)
[2017-08-25] MEDS ORDERED: LORazepam 2MG/ML-1ML VIAL IV ONE (00:30)
[2017-08-25 02:42] LABS: Urine Bacteria NONE SEEN /hpf (None Seen); Urine Blood 1+ /uL (Negative); Urine Specific Gravity 1.006 (1.001-1.035); Urine WBC <1 /hpf (0 - 5)
[2017-08-25 02:52] LABS: Alcohol, Urine < 3.0 mg/dL (0-5); Amphetamine Screen, Urine NEGATIVE (NEGATIVE); Barbiturate Scree,Urine NEGATIVE (NEGATIVE); Benzodiazephine Screen, Urine NEGATIVE (NEGATIVE); Cannabinoid Screen, Urine POSITIVE (NEGATIVE); Cocaine Screen, Urine NEGATIVE (NEGATIVE); Opiate Scree,Urine NEGATIVE (NEGATIVE); Phencyclidine Screen, Urine NEGATIVE (NEGATIVE)
[2017-08-25 09:35] VITALS: BP 128/80
== END 2017-08-25 11:37 | disposition home or self-care (01) ==
LOC: EDBD 19:52 → ER 20:01
DX: R41.82 Altered mental status, unspecified (principal); G92 Toxic encephalopathy; E86.0 Dehydration; N17.9 Acute kidney failure, unspecified; I12.9 Hypertensive chronic kidney disease with stage 1 through stage 4 chronic kidney disease, or unspecified chronic kidney disease; N18.9 Chronic kidney disease, unspecified; E78.5 Hyperlipidemia, unspecified; F17.210 Nicotine dependence, cigarettes, uncomplicated; Z79.82 Long term (current) use of aspirin
CPT/HCPCS: 36415; 36600; 70450; 71010; 80053; 80307; 80320; 81001; 82805; 83605; 83735; 84484; 85025; 85610; 85730; 87040; 93005; 96361; 96374; 96375; 96376; 99285; J1170; J1200; J2060; J2550; J7030; 94002

== ENCOUNTER 2017-09-20 16:01 | Inpatient (IN) | payer SELFPAY ==
[~2017-09-20] VITALS: Ht 167.6 cm; Wt 63.5 kg
[2017-09-20] MEDS ORDERED: SODIUM CHLORIDE 0.9% 500 ML IVB ONE (16:41)
[2017-09-20] MEDS ORDERED: PANTOPRAZOLE 40 MG/10 ML VIAL IV STA (16:41)
[2017-09-20] MEDS ORDERED: MORPHINE SULFATE 4 MG/ML SYR/VIAL IV ONE (16:45)
[2017-09-20] MEDS ORDERED: PROCHLORPERAZINE EDISYLATE 5 MG/ML 2ML VIAL IV ONE (16:45)
[2017-09-20] MEDS ORDERED: CHOL20007 PO (17:51)
[2017-09-20 18:14] LABS: Basophils # (auto) 0.1 uL; Basophils % (auto) 0.9 % (0.0-2.0); Eosinophils # (auto) 0 uL; Hematocrit 33.3 % (36.0-46.0); Hemoglobin 10.8 g/dL (12.2-16.2); Lymphocytes % (auto) 8.9 % (10.0-50.0); Mean Corpuscular Hemoglobin 30.5 pg (28.0-32.0); Mean Corpuscular Hgb Conc. 32.4 g/dL (32.0-36.0); Monocytes # (auto) 0.4 uL; Monocytes % (auto) 3.4 % (0.0-12.0); Neutrophils # (auto) 9.6 uL; Neutrophils % (auto) 86.8 % (37.0-80.0); Platelet Count (auto) 313 10^3/uL (140-450); Red Blood Cells 3.55 10^6/uL (4.0-5.20); Red Cell Distribution Width 15.1 % (11.8-14.3)
[2017-09-20 18:16] LABS: Albumin 3.3 g/dL (3.4-5.0); Bilirubin, Total 0.5 mg/dL (0.2-1.0); Calcium 9.4 mg/dL (8.5-10.1); Magnesium 2.5 mg/dL (1.6-2.6); Potassium 3.9 mmol/L (3.5-5.1); Total Protein 6.6 g/dL (6.4-8.2)
[2017-09-20] MEDS ORDERED: LORazepam 2MG/ML-1ML VIAL IV ONE (20:15)
[2017-09-20] MEDS ORDERED: SODIUM CHLORIDE 0.9% 1,000 ML IV SCH (21:25)
[2017-09-20] MEDS ORDERED: ONDANSETRON HCL 4 MG/2 ML VIAL IV PRN (21:30)
[2017-09-20] MEDS ORDERED: hydrALAZINE HCL 20 MG/ML VL IV PRN (21:30)
[2017-09-20] MEDS ORDERED: MORPHINE SULFATE 10 MG/ML INJ 1ML SDV IV PRN ×2 (21:30)
[2017-09-20] MEDS ORDERED: DOCUSATE SOD 100 MG CAP PO PRN (21:30)
[2017-09-20] MEDS ORDERED: NITROGLYCERIN 0.4 MG SL TAB SL PRN (21:30)
[2017-09-20] MEDS ORDERED: LORazepam 2MG/ML-1ML VIAL IV PRN (21:45)
[2017-09-21 02:02] VITALS: BP 131/60
[2017-09-21] MEDS: SODIUM CHLORIDE 0.9% 1,000 ML IV SCH ×2 (04:25→11:18)
[2017-09-21 05:17] VITALS: BP 131/60
[2017-09-21] MEDS ORDERED: VENLAFAXINE HCL 37.5mg XR cap PO SCH (07:00)
[2017-09-21 07:31] LABS: Basophils # (auto) 0 uL; Basophils % (auto) 0.5 % (0.0-2.0); Eosinophils # (auto) 0.1 uL; Eosinophils % (auto) 1.1 % (0.0-7.0); Hematocrit 29.6 % (36.0-46.0); Lymphocytes # (auto) 1.9 uL; Lymphocytes % (auto) 21.2 % (10.0-50.0); Mean Corpuscular Hemoglobin 31.5 pg (28.0-32.0); Mean Corpuscular Hgb Conc. 33.7 g/dL (32.0-36.0); Mean Corpuscular Volume 93.4 fL (80.0-100.0); Monocytes # (auto) 0.7 uL; Monocytes % (auto) 7.6 % (0.0-12.0); Neutrophils # (auto) 6.2 uL; Neutrophils % (auto) 69.6 % (37.0-80.0); Platelet Count (auto) 266 10^3/uL (140-450); Red Blood Cells 3.17 10^6/uL (4.0-5.20); Red Cell Distribution Width 14.9 % (11.8-14.3); White Blood Cell 8.9 10^3/uL (4.4-10.8)
[2017-09-21 08:00] LABS: Albumin 3.1 g/dL (3.4-5.0); Bilirubin, Total 0.6 mg/dL (0.2-1.0); Calcium 9.4 mg/dL (8.5-10.1); Total Protein 5.8 g/dL (6.4-8.2)
[2017-09-21 09:25] VITALS: BP 117/57
[2017-09-21] MEDS ORDERED: LAMOTRIGINE 25 MG PO SCH (10:00)
[2017-09-21] MEDS ORDERED: ENOXAPARIN SOD 40 MG/0.4 ML SYRINGE SC SCH (10:00)
[2017-09-21 12:49] VITALS: BP 140/73
[2017-09-21 16:32] VITALS: BP 140/73
== END 2017-09-21 18:20 | disposition home health service (06) | DRG 439 ==
LOC: EDBD 16:01 → ER 16:01 → OVERFLOW 16:02 → WEST WING 23:53
PROVIDERS: ADMIT Hospitalist; ATTEND Hospitalist
DX: K85.90 Acute pancreatitis without necrosis or infection, unspecified (principal); N18.4 Chronic kidney disease, stage 4 (severe); I13.10 Hypertensive heart and chronic kidney disease without heart failure, with stage 1 through stage 4 chronic kidney disease, or unspecified chronic kidney disease; E78.5 Hyperlipidemia, unspecified; F12.90 Cannabis use, unspecified, uncomplicated; F31.9 Bipolar disorder, unspecified; G89.29 Other chronic pain; I70.0 Atherosclerosis of aorta; F41.1 Generalized anxiety disorder; F43.10 Post-traumatic stress disorder, unspecified; K59.00 Constipation, unspecified; Z82.49 Family history of ischemic heart disease and other diseases of the circulatory system; Z87.891 Personal history of nicotine dependence; Z90.710 Acquired absence of both cervix and uterus; Z91.011 Allergy to milk products; Z79.899 Other long term (current) drug therapy
CPT/HCPCS: 36415; 74176; 74181; 80053; 80061; 82150; 83690; 83735; 84443; 85025; 87081; 93005; 94761; 96361; 96374; 96375; C9113

== ENCOUNTER 2017-10-20 04:58 | Emergency (ER) | payer SELFPAY ==
[~2017-10-20] VITALS: Ht 177.8 cm; Wt 59.0 kg
[~2017-10-20 04:58] MED LIST changes: +CHOL20007 PO
[2017-10-20 05:33] VITALS: BP 127/80
== END 2017-10-20 06:00 | disposition left against medical advice (07) ==
LOC: ER 04:59
DX: R11.2 Nausea with vomiting, unspecified (principal); Z53.21 Procedure and treatment not carried out due to patient leaving prior to being seen by health care provider
CPT/HCPCS: 74176

== ENCOUNTER 2018-04-17 09:44 | Inpatient (IN) | payer MEDICARE ==
[~2018-04-17] VITALS: Ht 175.3 cm; Wt 56.0 kg
[~2018-04-17 09:44] MED LIST changes: +ASPI-325 PO; -[UNRECOGNIZED DRUG - CODE] PO
[2018-04-17] MEDS ORDERED: LORazepam 2MG/ML-1ML VIAL IV ONE ×2 (10:03→10:45)
[2018-04-17] MEDS ORDERED: LORazepam 2MG/ML-1ML VIAL ONE (10:03)
[2018-04-17 12:03] LABS: Basophils # (auto) 0.1 uL; Basophils % (auto) 0.5 % (0.0-2.0); Eosinophils # (auto) 0 uL; Hematocrit 45.5 % (36.0-46.0); Hemoglobin 14.5 g/dL (12.2-16.2); Lymphocytes # (auto) 0.5 uL; Lymphocytes % (auto) 3.4 % (10.0-50.0); Mean Corpuscular Hemoglobin 30.2 pg (28.0-32.0); Mean Corpuscular Hgb Conc. 31.9 g/dL (32.0-36.0); Mean Corpuscular Volume 94.8 fL (80.0-100.0); Monocytes # (auto) 0.4 uL; Monocytes % (auto) 2.8 % (0.0-12.0); Neutrophils # (auto) 12.9 uL; Neutrophils % (auto) 93.3 % (37.0-80.0); Platelet Count (auto) 295 10^3/uL (140-450); Red Cell Distribution Width 15.3 % (11.8-14.3); White Blood Cell 13.8 10^3/uL (4.4-10.8)
[2018-04-17 12:19] LABS: INR 0.93 (0.9-1.15); Partial Thromboplastin Time 23.8 sec (23.78-33.04)
[2018-04-17 12:24] LABS: Alanine Aminotransferase 21 U/L (13-56); Albumin 4.2 g/dL (3.4-5.0); Anion Gap 6 (5-15); Aspartate Aminotransferase 18 U/L (15-37); Blood Alcohol < 3.0 mg/dL (0-5); Blood Urea Nitrogen 26 mg/dL (7-18); Calcium 10.1 mg/dL (8.5-10.1); Carbon Dioxide 21 mmol/L (21-32); Chloride 119 mmol/L (98-107); GFR African American 32 mL/min; GFR Non-African American 27 mL/min; Glucose 147 mg/dL (74-106); Potassium 4.1 mmol/L (3.5-5.1); Sodium 146 mmol/L (136-145)
[2018-04-17 12:29] LABS: Alkaline Phosphatase 82 U/L (45-117); Bilirubin, Total 0.4 mg/dL (0.2-1.0); Total Protein 8.1 g/dL (6.4-8.2)
[2018-04-17] MEDS ORDERED: diphenhdrAMINE HCL 50 MG/1 ML VL IV ONE (12:45)
[2018-04-17] MEDS ORDERED: HALOPERIDOL LACTATE 5 MG/ML INJ VIAL IM ONE (12:45)
[2018-04-17] MEDS ORDERED: LEVOFLOXACIN 500MG 100 ML IV ONE (14:00)
[2018-04-17] MEDS ORDERED: LORA1TAB12 PO (14:04)
[2018-04-17] MEDS ORDERED: ONDA4TAB5 PO (14:04)
[2018-04-17] MEDS ORDERED: AMLO10TA2 PO (14:04)
[2018-04-17] MEDS ORDERED: cefTRIAXone 1GM/10ml IVPUSH 10 ML IV ONE (15:45)
[2018-04-17] MEDS ORDERED: VANCOMYCIN PER PHARMACY 0 MG IV SCH (15:45)
[2018-04-17] MEDS ORDERED: ONDANSETRON HCL 4 MG/2 ML VIAL IV PRN (15:45)
[2018-04-17] MEDS ORDERED: LORazepam 2MG/ML-1ML VIAL IV PRN ×2 (15:45→19:15)
[2018-04-17] MEDS ORDERED: MORPHINE SULF INJ 2 MG/ML SYRINGE 1ML IV PRN ×2 (15:45)
[2018-04-17] MEDS ORDERED: HALOPERIDOL LACTATE 5 MG/ML INJ VIAL IM PRN (15:45)
[2018-04-17] MEDS ORDERED: LEVETIRACETAM INJ 500 MG in D5W 5% 100 ML IV ONE (15:45)
[2018-04-17] MEDS ORDERED: NITROGLYCERIN 0.4 MG SL TAB SL PRN (15:45)
[2018-04-17] MEDS ORDERED: VANCOMYCIN 1GM/250ML 250 ML IV ONE ×2 (16:00→20:30)
[2018-04-17] MEDS ORDERED: PANTOPRAZOLE 40 MG/10 ML VIAL IV ONE (16:00)
[2018-04-17] MEDS ORDERED: FAMOTIDINE (10MG/ML) 2ML VL IV ONE (16:00)
[2018-04-17] MEDS: SODIUM CHLORIDE 0.9% 1,000 ML IV SCH (17:00)
[2018-04-17 17:45] LABS: Urine Bacteria NONE SEEN /hpf (None Seen); Urine Blood 2+ /uL (Negative); Urine Mucus FEW (None Seen); Urine Specific Gravity 1.006 (1.001-1.035); Urine WBC 11 /hpf (0 - 5)
[2018-04-17 17:56] LABS: Alcohol, Urine < 3.0 mg/dL (0-5); Amphetamine Screen, Urine NEGATIVE (NEGATIVE); Barbiturate Scree,Urine NEGATIVE (NEGATIVE); Benzodiazephine Screen, Urine NEGATIVE (NEGATIVE); Cannabinoid Screen, Urine POSITIVE (NEGATIVE); Cocaine Screen, Urine NEGATIVE (NEGATIVE); Opiate Scree,Urine NEGATIVE (NEGATIVE)
[2018-04-17 18:02] LABS: Phencyclidine Screen, Urine NEGATIVE (NEGATIVE)
[2018-04-17 20:00] VITALS: BP 135/67
[2018-04-17 22:00] VITALS: BP 135/67
[2018-04-18] MEDS: SODIUM CHLORIDE 0.9% 1,000 ML IV SCH ×3 (00:02→17:56)
[2018-04-18 05:00] VITALS: BP 150/62
[2018-04-18] MEDS: LEVETIRACETAM INJ 500 MG in D5W 5% 100 ML IV SCH ×2 (05:51→17:56)
[2018-04-18 07:34] LABS: Basophils # (auto) 0.1 uL; Basophils % (auto) 0.8 % (0.0-2.0); Eosinophils # (auto) 0 uL; Eosinophils % (auto) 0.2 % (0.0-7.0); Hematocrit 41.4 % (36.0-46.0); Hemoglobin 13.7 g/dL (12.2-16.2); Lymphocytes # (auto) 1.4 uL; Lymphocytes % (auto) 11.5 % (10.0-50.0); Mean Corpuscular Hgb Conc. 33.1 g/dL (32.0-36.0); Mean Corpuscular Volume 93.6 fL (80.0-100.0); Monocytes # (auto) 0.8 uL; Monocytes % (auto) 6.6 % (0.0-12.0); Neutrophils # (auto) 10.2 uL; Neutrophils % (auto) 80.9 % (37.0-80.0); Nucleated Red Blood Cells % 0.1 %; Platelet Count (auto) 259 10^3/uL (140-450); Red Blood Cells 4.43 10^6/uL (4.0-5.20); Red Cell Distribution Width 14.8 % (11.8-14.3); White Blood Cell 12.6 10^3/uL (4.4-10.8)
[2018-04-18 08:03] LABS: Albumin 3.8 g/dL (3.4-5.0); BUN/Creatinine Ratio 12.5; Bilirubin, Total 0.7 mg/dL (0.2-1.0); Calcium 10.6 mg/dL (8.5-10.1); Potassium 3.8 mmol/L (3.5-5.1); Total Protein 7.3 g/dL (6.4-8.2)
[2018-04-18 08:30] VITALS: BP 136/58
[2018-04-18 09:53] VITALS: BP 136/58
[2018-04-18] MEDS: cefTRIAXone 1GM/10ml IVPUSH 10 ML IV SCH (09:53)
[2018-04-18] MEDS: PANTOPRAZOLE 40 MG/10 ML VIAL IV SCH (09:53)
[2018-04-18] MEDS ORDERED: FAMOTIDINE (10MG/ML) 2ML VL IV SCH (10:00)
[2018-04-18] MEDS ORDERED: VANCOMYCIN 1GM/250ML 250 ML IV SCH (10:00)
[2018-04-18 21:30] VITALS: BP 116/58
[2018-04-19] MEDS: SODIUM CHLORIDE 0.9% 1,000 ML IV SCH ×3 (01:02→17:50)
[2018-04-19 05:00] VITALS: BP 127/77
[2018-04-19] MEDS: LEVETIRACETAM INJ 500 MG in D5W 5% 100 ML IV SCH ×2 (06:05→17:13)
[2018-04-19 07:29] VITALS: BP 129/69
[2018-04-19 08:58] LABS: Basophils # (auto) 0.1 uL; Basophils % (auto) 1.1 % (0.0-2.0); Eosinophils # (auto) 0.1 uL; Eosinophils % (auto) 0.8 % (0.0-7.0); Hematocrit 41.4 % (36.0-46.0); Hemoglobin 13.9 g/dL (12.2-16.2); Lymphocytes # (auto) 1.7 uL; Lymphocytes % (auto) 17.3 % (10.0-50.0); Mean Corpuscular Hemoglobin 31.4 pg (28.0-32.0); Mean Corpuscular Hgb Conc. 33.5 g/dL (32.0-36.0); Mean Corpuscular Volume 93.8 fL (80.0-100.0); Monocytes # (auto) 0.7 uL; Monocytes % (auto) 7.4 % (0.0-12.0); Neutrophils # (auto) 7.1 uL; Neutrophils % (auto) 73.4 % (37.0-80.0); Nucleated Red Blood Cells % 0.1 %; Platelet Count (auto) 252 10^3/uL (140-450); Red Blood Cells 4.42 10^6/uL (4.0-5.20); Red Cell Distribution Width 14.4 % (11.8-14.3); White Blood Cell 9.6 10^3/uL (4.4-10.8)
[2018-04-19 09:25] LABS: Albumin 3.8 g/dL (3.4-5.0); BUN/Creatinine Ratio 14.4; Bilirubin, Total 0.7 mg/dL (0.2-1.0); Calcium 10.2 mg/dL (8.5-10.1); Potassium 3.8 mmol/L (3.5-5.1); Total Protein 7.1 g/dL (6.4-8.2)
[2018-04-19] MEDS: LORazepam 0.5 MG TAB PO PRN ×3 (09:37→23:19)
[2018-04-19] MEDS: PANTOPRAZOLE 40 MG/10 ML VIAL IV SCH (09:39)
[2018-04-19] MEDS: cefTRIAXone 1GM/10ml IVPUSH 10 ML IV SCH (09:39)
[2018-04-19 13:18] VITALS: BP 139/77
[2018-04-19 16:46] VITALS: BP 154/65
[2018-04-19 20:00] VITALS: BP 144/73
[2018-04-19 22:00] VITALS: BP 144/73
[2018-04-20] MEDS: SODIUM CHLORIDE 0.9% 1,000 ML IV SCH ×2 (02:30→09:52)
[2018-04-20 04:51] VITALS: BP 156/71
[2018-04-20] MEDS: LEVETIRACETAM INJ 500 MG in D5W 5% 100 ML IV SCH (05:36)
[2018-04-20] MEDS: LORazepam 0.5 MG TAB PO PRN ×2 (06:53→12:05)
[2018-04-20 07:19] LABS: Basophils # (auto) 0.1 uL; Basophils % (auto) 0.8 % (0.0-2.0); Eosinophils # (auto) 0.1 uL; Eosinophils % (auto) 1.7 % (0.0-7.0); Hemoglobin 13.8 g/dL (12.2-16.2); Lymphocytes # (auto) 1.4 uL; Lymphocytes % (auto) 16.5 % (10.0-50.0); Mean Corpuscular Hemoglobin 31.1 pg (28.0-32.0); Mean Corpuscular Hgb Conc. 32.9 g/dL (32.0-36.0); Mean Corpuscular Volume 94.4 fL (80.0-100.0); Monocytes # (auto) 0.5 uL; Monocytes % (auto) 6.2 % (0.0-12.0); Neutrophils # (auto) 6.3 uL; Neutrophils % (auto) 74.8 % (37.0-80.0); Nucleated Red Blood Cells % 0.1 %; Platelet Count (auto) 255 10^3/uL (140-450); Red Blood Cells 4.45 10^6/uL (4.0-5.20); Red Cell Distribution Width 14.6 % (11.8-14.3); White Blood Cell 8.4 10^3/uL (4.4-10.8)
[2018-04-20 07:22] LABS: BUN/Creatinine Ratio 14.6; Potassium 3.8 mmol/L (3.5-5.1)
[2018-04-20 08:00] VITALS: BP 15/71
[2018-04-20 09:00] VITALS: BP 155/71
[2018-04-20] MEDS: cefTRIAXone 1GM/10ml IVPUSH 10 ML IV SCH (09:52)
[2018-04-20] MEDS: PANTOPRAZOLE 40 MG/10 ML VIAL IV SCH (09:52)
[2018-04-20 12:14] VITALS: BP 123/89
[2018-04-20 14:34] LABS: Protein, Urine 16.7 mg/dL (0.0-11.9)
[2018-04-28] MEDS ORDERED: LORazepam 2MG/ML-1ML VIAL IV ONE (16:00)
== END 2018-04-20 14:15 | disposition home or self-care (01) | DRG 871 ==
LOC: EDBD 09:44 → ER 09:44 → TELE 09:45 → TELE-CENTR 18:00
PROVIDERS: ADMIT Internal Medicine; ATTEND Family Medicine
DX: A41.9 Sepsis, unspecified organism (principal); G93.41 Metabolic encephalopathy; N39.0 Urinary tract infection, site not specified; E87.0 Hyperosmolality and hypernatremia; E11.22 Type 2 diabetes mellitus with diabetic chronic kidney disease; I12.9 Hypertensive chronic kidney disease with stage 1 through stage 4 chronic kidney disease, or unspecified chronic kidney disease; Z91.011 Allergy to milk products; Z90.710 Acquired absence of both cervix and uterus; E11.21 Type 2 diabetes mellitus with diabetic nephropathy; E78.00 Pure hypercholesterolemia, unspecified; E78.5 Hyperlipidemia, unspecified; E86.0 Dehydration; F12.10 Cannabis abuse, uncomplicated; F17.200 Nicotine dependence, unspecified, uncomplicated; F32.9 Major depressive disorder, single episode, unspecified; F43.10 Post-traumatic stress disorder, unspecified; N27.1 Small kidney, bilateral; R32 Unspecified urinary incontinence; Z79.899 Other long term (current) drug therapy; Z80.3 Family history of malignant neoplasm of breast; Z82.3 Family history of stroke; Z82.49 Family history of ischemic heart disease and other diseases of the circulatory system; N18.3 Chronic kidney disease, stage 3 (moderate); G40.901 Epilepsy, unspecified, not intractable, with status epilepticus
CPT/HCPCS: 36415; 36600; 70450; 70551; 71045; 80048; 80053; 80202; 80307; 80320; 81001; 82533; 82570; 82805; 83036; 83520; 83605; 84156; 84300; 84443; 84484; 85025; 85610; 85730; 86038; 86160; 86256; 87040; 87081; 87086; 92610; 93005; 93306; 93886; 95819; 96365; 96366; 96372; 96375; 97116; 97530; 99291; A4565; C9113; J0696; J1956; J7060

== ENCOUNTER 2019-03-08 15:00 | Inpatient (IN) | payer MEDICARE | END 2019-03-11 17:00 | disposition home or self-care (01) | LOC: ER 15:00 → TELE 15:01 → TELE-WESTW 03-09 07:40 | DX: F41.9 Anxiety disorder, unspecified (principal); E87.0 Hyperosmolality and hypernatremia; R00.1 Bradycardia, unspecified; E87.5 Hyperkalemia; N18.3 Chronic kidney disease, stage 3 (moderate); I10 Essential (primary) hypertension ==

== ENCOUNTER 2019-06-19 11:11 | Inpatient (IN) | payer MEDICARE, OTHER ==
[~2019-06-19] VITALS: Ht 175.3 cm; Wt 74.6 kg
[~2019-06-19 11:11] MED LIST changes: +AMLO10TA13 PO; -BENA1POW PO; +FAMO-12 PO; +GABA300C10 PO; -LAMO25TA66 PO; -LORA-654 PO; +LORA0.5T12 PO; +METO25TA62 PO; +MIRT30TA OR; +OLAN10TA29 PO; +ONDA-144 PO; -PRO10T PO; -VENL150C OR; +VENL150C2 OR
[2019-06-19] MEDS ORDERED: SODIUM CHLORIDE 0.9% 500 ML IVB ONE (11:21)
[2019-06-19] MEDS ORDERED: LORazepam 2MG/ML-1ML VIAL IV ONE (11:30)
[2019-06-19 12:55] LABS: Basophils # (auto) 0 uL; Basophils % (auto) 0.4 % (0.0-2.0); Eosinophils # (auto) 0 uL; Eosinophils % (auto) 0.1 % (0.0-7.0); Hematocrit 45.3 % (36.0-46.0); Hemoglobin 14.5 g/dL (12.2-16.2); Lymphocytes # (auto) 0.5 uL; Lymphocytes % (auto) 4.3 % (10.0-50.0); Mean Corpuscular Hemoglobin 30.5 pg (28.0-32.0); Mean Corpuscular Volume 95.4 fL (80.0-100.0); Monocytes # (auto) 0.4 uL; Monocytes % (auto) 3.7 % (0.0-12.0); Neutrophils # (auto) 10.6 uL; Neutrophils % (auto) 91.5 % (37.0-80.0); Nucleated Red Blood Cells % 0.1 %; Platelet Count (auto) 213 10^3/uL (140-450); Red Blood Cells 4.75 10^6/uL (4.0-5.20); Red Cell Distribution Width 15.9 % (11.8-14.3); White Blood Cell 11.5 10^3/uL (4.4-10.8)
[2019-06-19 13:11] LABS: Alanine Aminotransferase 43 U/L (13-56); Albumin 4.4 g/dL (3.4-5.0); Anion Gap 7 (5-15); Aspartate Aminotransferase 34 U/L (15-37); Blood Alcohol < 3.0 mg/dL (0-5); Blood Urea Nitrogen 27 mg/dL (7-18); Carbon Dioxide 21 mmol/L (21-32); Chloride 115 mmol/L (98-107); GFR African American 36 mL/min; GFR Non-African American 30 mL/min; Glucose 136 mg/dL (74-106); Magnesium 2.3 mg/dL (1.6-2.6); Sodium 143 mmol/L (136-145)
[2019-06-19 13:15] LABS: Alkaline Phosphatase 155 U/L (45-117); Bilirubin, Total 0.3 mg/dL (0.2-1.0); Total Protein 7.9 g/dL (6.4-8.2)
[2019-06-19] MEDS ORDERED: ACETAMINOPHEN 325 MG TAB PO ONE (14:15)
[2019-06-19] MEDS ORDERED: NITROGLYCERIN 0.4 MG SL TAB SL PRN (15:00)
[2019-06-19] MEDS ORDERED: MORPHINE SULF INJ 2 MG/ML SYRINGE 1ML IV PRN (15:00)
[2019-06-19] MEDS: SODIUM CHLORIDE 0.9% 1,000 ML IV SCH (15:29)
[2019-06-19] MEDS: METOPROLOL SUCCINATE XL 50 MG TAB PO SCH (17:30)
--- NOTE | 2019-06-19 20:30 | NUR ---
Telemetry admit from [facility] admitted to Telemetry unit after SBAR received. Patient oriented to Nagi Tejeda primary RN, unit, room, bed, and unit policies regarding patient care and visiting hours. Patient now on continuous telemetry monitoring, tele box # [id number] and telemetry reading on arrival to unit is atrial psced. Patient placed on bedside oxygen, weighed by bedscale and encouraged to call if they need something. All questions and concerns addressed, patient verbalized understanding. Patient with sitter at bedside.
[2019-06-19] MEDS ORDERED: LORazepam 2MG/ML-1ML VIAL IV PRN (20:45)
[2019-06-19 21:30] VITALS: BP 154/80
[2019-06-19] MEDS ORDERED: FAMOTIDINE 20 MG TAB PO ONE (21:30)
[2019-06-19 22:01] LABS: Urine WBC None Seen /hpf (0 - 5)
[2019-06-19 22:25] LABS: Alcohol, Urine < 3.0 mg/dL (0-5); Amphetamine Screen, Urine NEGATIVE (NEGATIVE); Barbiturate Scree,Urine NEGATIVE (NEGATIVE); Benzodiazephine Screen, Urine NEGATIVE (NEGATIVE); Cannabinoid Screen, Urine POSITIVE (NEGATIVE); Cocaine Screen, Urine NEGATIVE (NEGATIVE); Opiate Scree,Urine NEGATIVE (NEGATIVE); Phencyclidine Screen, Urine NEGATIVE (NEGATIVE)
[2019-06-19 22:29] LABS: Urine Bacteria NONE SEEN /hpf (None Seen); Urine Blood TRACE /uL (Negative); Urine Specific Gravity 1.006 (1.001-1.035)
[2019-06-19 22:32] LABS: Creatinine, Urine 26 mg/dL (30.0-125.0); Sodium Urine 53 mmol/L (40-220)
[2019-06-19] MEDS: PHENYTOIN SODIUM 100 MG CAP PO SCH (22:39)
[2019-06-19] MEDS: GABAPENTIN 300 MG CAP PO SCH (22:39)
[2019-06-19] MEDS: OLANZapine 5 MG TAB PO SCH (22:40)
[2019-06-19] MEDS: MIRTAZAPINE 30 MG TAB PO SCH (22:40)
[2019-06-19] MEDS: ONDANSETRON ODT 4 MG TAB PO SCH (22:40)
[2019-06-20] MEDS: SODIUM CHLORIDE 0.9% 1,000 ML IV SCH ×3 (01:30→21:00)
[2019-06-20] MEDS: LORazepam 2MG/ML-1ML VIAL IV PRN ×2 (02:46→15:44)
[2019-06-20 05:00] VITALS: BP 134/85
[2019-06-20 05:27] LABS: Basophils # (auto) 0 uL; Basophils % (auto) 0.3 % (0.0-2.0); Eosinophils # (auto) 0 uL; Eosinophils % (auto) 0.1 % (0.0-7.0); Hematocrit 41.6 % (36.0-46.0); Hemoglobin 13.9 g/dL (12.2-16.2); Lymphocytes # (auto) 1.2 uL; Mean Corpuscular Hemoglobin 31.1 pg (28.0-32.0); Mean Corpuscular Hgb Conc. 33.3 g/dL (32.0-36.0); Mean Corpuscular Volume 93.4 fL (80.0-100.0); Monocytes # (auto) 0.8 uL; Neutrophils % (auto) 77.6 % (37.0-80.0); Platelet Count (auto) 196 10^3/uL (140-450); Red Blood Cells 4.45 10^6/uL (4.0-5.20); Red Cell Distribution Width 15.5 % (11.8-14.3)
[2019-06-20 05:51] LABS: Albumin 3.8 g/dL (3.4-5.0); Calcium 9.6 mg/dL (8.5-10.1); Potassium 4.3 mmol/L (3.5-5.1)
[2019-06-20 05:58] LABS: Bilirubin, Total 0.5 mg/dL (0.2-1.0)
[2019-06-20] MEDS: VENLAFAXINE HCL 37.5mg XR cap PO SCH (06:37)
[2019-06-20] MEDS: ONDANSETRON ODT 4 MG TAB PO SCH ×3 (06:38→21:42)
[2019-06-20] MEDS: GABAPENTIN 300 MG CAP PO SCH ×3 (06:39→21:43)
--- NOTE | 2019-06-20 07:30 | NUR ---
OPENING NOTE ASSUMED CARE OF PT. ALERT AND ORIENTED. NO S/S OF SOB/DISTRESS NOTED. DENIES ANY PAIN. SAFETY PRECAUTIONS IN PLACE. BED SET TO LOWEST POSITION/LOCKED. SITTER AT BEDSIDE. BEDSIDE RAILS UP X2. CALL LIGHT WITHIN REACH. INSTRUCTED PT TO CALL FOR ASSISTANCE. UPDATED ON POC. PT VERBALIZED UNDERSTANDING. WILL CONTINUE TO MONITOR Q1HR AND PRN.
[2019-06-20 08:45] VITALS: BP 122/72
[2019-06-20] MEDS: FAMOTIDINE 20 MG TAB PO SCH (10:03)
[2019-06-20] MEDS: ASPirin 81 mg TAB PO SCH (10:03)
[2019-06-20] MEDS: OLANZapine 5 MG TAB PO SCH ×2 (10:03→21:42)
[2019-06-20] MEDS: CHOLECALCIFEROL (VITD3) 1,000 UNIT TAB PO SCH (10:04)
[2019-06-20] MEDS: ATORVASTATIN 20 MG TAB PO SCH (10:04)
[2019-06-20] MEDS: MIRTAZAPINE 30 MG TAB PO SCH ×2 (10:04→21:43)
[2019-06-20] MEDS: amLODIPine BESYLATE 5 MG TAB PO SCH (10:05)
[2019-06-20 12:55] VITALS: BP 139/69
--- NOTE | 2019-06-20 14:44 | NUR ---
ELECTROENCEPHALOGRAM COMPLETED AT BEDSIDE. RN GARY NOTIFIED.
[2019-06-20 16:36] VITALS: BP 139/98
[2019-06-20] MEDS: METOPROLOL SUCCINATE XL 50 MG TAB PO SCH (17:05)
[2019-06-20 21:00] VITALS: BP 148/88
[2019-06-20] MEDS: PHENYTOIN SODIUM 100 MG CAP PO SCH (21:42)
[2019-06-21 05:00] VITALS: BP 125/81
[2019-06-21] MEDS: SODIUM CHLORIDE 0.9% 1,000 ML IV SCH ×2 (06:21→17:00)
[2019-06-21] MEDS: GABAPENTIN 300 MG CAP PO SCH ×3 (06:21→21:23)
[2019-06-21] MEDS: VENLAFAXINE HCL 37.5mg XR cap PO SCH (06:21)
[2019-06-21] MEDS: ONDANSETRON ODT 4 MG TAB PO SCH ×3 (06:22→21:24)
[2019-06-21 06:35] LABS: Basophils # (auto) 0.1 uL; Basophils % (auto) 0.6 % (0.0-2.0); Eosinophils # (auto) 0 uL; Eosinophils % (auto) 0.4 % (0.0-7.0); Hematocrit 42.9 % (36.0-46.0); Hemoglobin 14.3 g/dL (12.2-16.2); Lymphocytes # (auto) 1.5 uL; Lymphocytes % (auto) 19.1 % (10.0-50.0); Mean Corpuscular Hemoglobin 31.2 pg (28.0-32.0); Mean Corpuscular Hgb Conc. 33.2 g/dL (32.0-36.0); Mean Corpuscular Volume 94.1 fL (80.0-100.0); Monocytes # (auto) 0.7 uL; Monocytes % (auto) 9.2 % (0.0-12.0); Neutrophils # (auto) 5.7 uL; Neutrophils % (auto) 70.7 % (37.0-80.0); Nucleated Red Blood Cells % 0.2 %; Platelet Count (auto) 206 10^3/uL (140-450); Red Blood Cells 4.56 10^6/uL (4.0-5.20); Red Cell Distribution Width 14.9 % (11.8-14.3); White Blood Cell 8.1 10^3/uL (4.4-10.8)
[2019-06-21 06:52] LABS: Calcium 9.6 mg/dL (8.5-10.1); Potassium 4.4 mmol/L (3.5-5.1)
[2019-06-21 06:54] LABS: Albumin 3.7 g/dL (3.4-5.0)
[2019-06-21 06:56] LABS: Bilirubin, Total 0.4 mg/dL (0.2-1.0); Total Protein 6.9 g/dL (6.4-8.2)
[2019-06-21] MEDS ORDERED: SODIUM CHLORIDE 0.9% 500 ML IV ONE (10:00)
[2019-06-21] MEDS: CHOLECALCIFEROL (VITD3) 1,000 UNIT TAB PO SCH (10:12)
[2019-06-21] MEDS: OLANZapine 5 MG TAB PO SCH ×2 (10:13→21:24)
[2019-06-21] MEDS: ASPirin 81 mg TAB PO SCH (10:13)
[2019-06-21] MEDS: amLODIPine BESYLATE 5 MG TAB PO SCH (10:13)
[2019-06-21] MEDS: FAMOTIDINE 20 MG TAB PO SCH (10:14)
[2019-06-21] MEDS: MIRTAZAPINE 30 MG TAB PO SCH ×2 (10:14→21:23)
[2019-06-21] MEDS: ATORVASTATIN 20 MG TAB PO SCH (10:14)
--- NOTE | 2019-06-21 10:30 | NUR ---
MD DR. YORK AT BEDSIDE, DISCUSSED POC WITH PATIENT. NEW ORDERS GIVEN/CARRIED OUT. WILL CONTINUE TO MONITOR.
[2019-06-21] MEDS ORDERED: ERGOCALCIFEROL 50,000 UNIT(1.25MG) CAP PO SCH (10:45)
[2019-06-21] MEDS: LORazepam 2MG/ML-1ML VIAL IV PRN (15:26)
[2019-06-21 17:00] VITALS: BP 144/90
[2019-06-21] MEDS: METOPROLOL SUCCINATE XL 50 MG TAB PO SCH (17:37)
--- NOTE | 2019-06-21 20:00 | NUR ---
Opening Shift Note Assumed care of patient, awake and alert. No S/S of distress/SOB or pain. Instructed on POC and to call for assist PRN, will continue to monitor for changes Q1hr and PRN.
[2019-06-21] MEDS: PHENYTOIN SODIUM 100 MG CAP PO SCH (21:22)
[2019-06-21 21:36] VITALS: BP 133/93
[2019-06-22] MEDS: SODIUM CHLORIDE 0.9% 1,000 ML IV SCH ×2 (03:00→14:25)
[2019-06-22] MEDS: GABAPENTIN 300 MG CAP PO SCH ×3 (05:17→23:26)
[2019-06-22] MEDS: ONDANSETRON ODT 4 MG TAB PO SCH ×3 (05:20→23:27)
[2019-06-22 05:39] VITALS: BP 121/77
[2019-06-22 05:59] LABS: Basophils # (auto) 0.1 uL; Basophils % (auto) 1.1 % (0.0-2.0); Eosinophils # (auto) 0.1 uL; Eosinophils % (auto) 1.3 % (0.0-7.0); Hematocrit 40.4 % (36.0-46.0); Hemoglobin 13.6 g/dL (12.2-16.2); Lymphocytes # (auto) 1.7 uL; Lymphocytes % (auto) 23.2 % (10.0-50.0); Mean Corpuscular Hgb Conc. 33.8 g/dL (32.0-36.0); Mean Corpuscular Volume 94.8 fL (80.0-100.0); Monocytes # (auto) 0.6 uL; Monocytes % (auto) 8.7 % (0.0-12.0); Neutrophils # (auto) 4.8 uL; Neutrophils % (auto) 65.7 % (37.0-80.0); Platelet Count (auto) 199 10^3/uL (140-450); Red Blood Cells 4.26 10^6/uL (4.0-5.20); Red Cell Distribution Width 14.9 % (11.8-14.3); White Blood Cell 7.4 10^3/uL (4.4-10.8)
[2019-06-22] MEDS: VENLAFAXINE HCL 37.5mg XR cap PO SCH (06:11)
[2019-06-22 06:19] LABS: Albumin 3.6 g/dL (3.4-5.0); BUN/Creatinine Ratio 25.6; Potassium 4.4 mmol/L (3.5-5.1)
[2019-06-22 06:48] LABS: Bilirubin, Total 0.5 mg/dL (0.2-1.0); Total Protein 6.4 g/dL (6.4-8.2)
--- NOTE | 2019-06-22 07:15 | NUR ---
Opening shift note Care of patient assumed from overnight stocker nurse. Patient alert and oriented x4. Patient sitting up in bed. No signs of distress noted. Plan of care discussed with patient and she verbalizes understanding. Bed in lowest position, side rails up x2, call light in reach. Will continue to monitor.
[2019-06-22 09:00] VITALS: BP 113/76
[2019-06-22] MEDS: ASPirin 81 mg TAB PO SCH (10:35)
[2019-06-22] MEDS: CHOLECALCIFEROL (VITD3) 1,000 UNIT TAB PO SCH (10:36)
[2019-06-22] MEDS: OLANZapine 5 MG TAB PO SCH ×2 (10:36→23:27)
[2019-06-22] MEDS: amLODIPine BESYLATE 5 MG TAB PO SCH (10:37)
[2019-06-22] MEDS: FAMOTIDINE 20 MG TAB PO SCH (10:37)
[2019-06-22] MEDS: ATORVASTATIN 20 MG TAB PO SCH (10:42)
[2019-06-22] MEDS: MIRTAZAPINE 30 MG TAB PO SCH ×2 (10:42→23:26)
[2019-06-22 13:00] VITALS: BP 115/69
--- NOTE | 2019-06-22 14:30 | NUR ---
Hunter catheter insertion Patient assessed and determined to be in need of hunter catheter. Order obtained from Katherin COLINDRES. Patient educated on catheter and reason for insertion. All questions answered. Hunter catheter 16 guage Portuguese inserted with clean sterile technique. Patient tolerated well.
[2019-06-22] MEDS: SODIUM BICARBONATE 50ML VIAL 75 ML in SOD CHL 0.45% 1,000 ML IV SCH ×2 (15:26→23:28)
[2019-06-22 17:00] VITALS: BP 150/86
[2019-06-22] MEDS: METOPROLOL SUCCINATE XL 50 MG TAB PO SCH (17:55)
--- NOTE | 2019-06-22 18:45 | NUR ---
Patient Rounds Patient resting in bed watching television. No s/s of distress or SOB, no pain noted or reported at this time. Will endorse care to shift coordinator RN.
[2019-06-22 22:00] VITALS: BP 119/79
[2019-06-22] MEDS: PHENYTOIN SODIUM 100 MG CAP PO SCH (23:26)
[2019-06-23 05:00] VITALS: BP 135/84
[2019-06-23] MEDS: ONDANSETRON ODT 4 MG TAB PO SCH ×2 (05:56→14:00)
[2019-06-23] MEDS: GABAPENTIN 300 MG CAP PO SCH ×2 (05:56→14:00)
[2019-06-23] MEDS: VENLAFAXINE HCL 37.5mg XR cap PO SCH (05:57)
[2019-06-23] MEDS: SODIUM BICARBONATE 50ML VIAL 75 ML in SOD CHL 0.45% 1,000 ML IV SCH ×2 (05:57→11:13)
[2019-06-23 06:45] LABS: Albumin 3.4 g/dL (3.4-5.0); BUN/Creatinine Ratio 21.6; Bilirubin, Total 0.3 mg/dL (0.2-1.0); Magnesium 2.1 mg/dL (1.6-2.6); Potassium 4.3 mmol/L (3.5-5.1); Total Protein 6.2 g/dL (6.4-8.2)
--- NOTE | 2019-06-23 07:30 | NUR ---
Opening Shift Note Assumed care of patient, AOx4. No S/S of distress/SOB or pain. Patient on seizure precautions with bed in lowest position/locked, padded bed, and call light within reach. Patient instructed on POC today and to call for assist PRN, will continue to monitor for changes Q1hr and PRN.
[2019-06-23 09:00] VITALS: BP 139/85
[2019-06-23] MEDS: FAMOTIDINE 20 MG TAB PO SCH (10:05)
[2019-06-23] MEDS: OLANZapine 5 MG TAB PO SCH (10:05)
[2019-06-23] MEDS: ASPirin 81 mg TAB PO SCH (10:05)
[2019-06-23] MEDS: amLODIPine BESYLATE 5 MG TAB PO SCH (10:08)
[2019-06-23] MEDS: ATORVASTATIN 20 MG TAB PO SCH (10:08)
[2019-06-23] MEDS: CHOLECALCIFEROL (VITD3) 1,000 UNIT TAB PO SCH (10:08)
[2019-06-23] MEDS: MIRTAZAPINE 30 MG TAB PO SCH (10:08)
--- NOTE | 2019-06-23 11:20 | NUR ---
MD Doctor Pandey at nurses station. Per MD, patient is cleared through his standpoint. Patient is to follow up in one week.
--- NOTE | 2019-06-23 12:56 | NUR ---
Hunter catheter dc'd Order to discontinue hunter catheter. Hunter dc'd with clean technique following deflation of balloon. Patient tolerated well with no complaints of pain. 700ml output. Continue care.
[2019-06-23 13:00] VITALS: BP 139/80
[2019-06-23 13:32] VITALS: BP 139/85
--- NOTE | 2019-06-23 15:00 | NUR ---
Discharge instructions given as ordered. Encourage to follow up with PMD as instructed. All questions and concerns addressed. Patient verbalized understanding. IV removed with catheter intact, pressure dressing applied. Telemetry unit returned to ICU.
--- NOTE | 2019-06-23 16:06 | NUR ---
Patient taken to vehicle via wheelchair with all personal belongings, accompanied by staff and family member. No distress noted at time of departure.
--- NOTE | 2019-06-23 16:49 | NUR ---
Discharge planning per consult, patient has orders for home health. Referral sent to [facility] for review and contracted agencies, placed a follow up call, spoke with assistant case manager Hoda and was advised that they the referral was sent to [facility], michel obtained-[id number]. Placed a follow up call to [facility], and was advised that they informed [facility] that they could not take the patient due to location. Addendum: 06/23/19 at 1701 by COLINNETTA DELA CRUZO Amended: Links added. Addendum: 06/23/19 at 1723 by COLIN CATO Placed a follow up call to [facility], spoke with Sheri and was advised that the notes indicate that when Jennifer spoke with Ni, [facility] was accepting and start of care would be on Wed, which is also indicated on the auth sent to [facility]. I advised Sheri that Ni advised she spoke with Raysa at [facility] and advised they could not accept patient as Hoda had left for the day. Sheri advised that she would sent it out to other agencies and call back. Provided Sheri with the hospital's main number, and advised her to call and ask for the on-call assistant case manager for further assistance. Nurse Holder was advised of updated dc plan.
--- NOTE | 2019-06-23 17:16 | NUR ---
assessment Patient has no post discharge needs identified. Addendum: 06/23/19 at 1716 by Yadira MERCEDES Amended: Links added.
== END 2019-06-23 16:05 | disposition home or self-care (01) | DRG 682 ==
LOC: EDBD 11:11 → ER 11:14 → TELE 11:15 → TELE-WESTW 20:21
PROVIDERS: ADMIT Internal Medicine; ATTEND Internal Medicine
DX: N17.0 Acute kidney failure with tubular necrosis (principal); G92 Toxic encephalopathy; E87.2 Acidosis; D72.829 Elevated white blood cell count, unspecified; E55.9 Vitamin D deficiency, unspecified; E78.5 Hyperlipidemia, unspecified; F12.90 Cannabis use, unspecified, uncomplicated; F31.9 Bipolar disorder, unspecified; F17.200 Nicotine dependence, unspecified, uncomplicated; F43.10 Post-traumatic stress disorder, unspecified; F51.3 Sleepwalking [somnambulism]; I12.9 Hypertensive chronic kidney disease with stage 1 through stage 4 chronic kidney disease, or unspecified chronic kidney disease; I67.2 Cerebral atherosclerosis; N18.3 Chronic kidney disease, stage 3 (moderate); N28.1 Cyst of kidney, acquired; I10 Essential (primary) hypertension; Z86.73 Personal history of transient ischemic attack (TIA), and cerebral infarction without residual deficits; Z91.011 Allergy to milk products; Z91.018 Allergy to other foods; Z79.82 Long term (current) use of aspirin; Z79.899 Other long term (current) drug therapy; Z80.3 Family history of malignant neoplasm of breast; Z82.3 Family history of stroke; Z81.8 Family history of other mental and behavioral disorders; Z90.710 Acquired absence of both cervix and uterus
CPT/HCPCS: 36415; 70450; 70551; 71045; 76775; 80053; 80185; 80307; 80320; 81001; 82306; 82570; 83735; 83970; 84100; 84300; 84484; 85025; 87086; 93005; 94761; 95819; 96361; 96374; G0378; Q0162